=== PATIENT | male | born 1980 | race American Indian/Alaskan Native ===

== ENCOUNTER 2016-05-31 08:51 | Emergency (ER) | payer OTHER ==
[2016-05-31] MEDS ORDERED: TORADOL ONE (09:15)
[2016-05-31] MEDS ORDERED: NACL 0.9% 1000 ML 1,000 ML ONE (09:15)
[2016-05-31] MEDS ORDERED: TORADOL IV ONE (09:15)
[2016-05-31] MEDS ORDERED: NACL 0.9% 1000 ML 1,000 ML IV ONE (09:15)
[2016-05-31] MEDS ORDERED: BENADRYL IV ONE (09:43)
[2016-05-31] MEDS ORDERED: DILAUDID IV ONE ×2 (09:43→12:16)
[2016-05-31] MEDS ORDERED: ZOFRAN IV ONE (09:43)
[2016-05-31 09:58] LABS: Alanine Aminotransferase 21 units/L (7-56); Albumin 3.9 g/dL (3.9-5); Albumin/Globulin Ratio 1.3 %; Alkaline Phosphatase 46 units/L (35-129); Anion Gap 19 mmol/L; BUN/Creatinine Ratio 13.63; Bilirubin,Total 0.2 mg/dL (0.1-1.2); Blood Urea Nitrogen 15 mg/dL (9-20); Calcium 8.7 mg/dL (8.4-10.2); Carbon Dioxide 22 mmol/L (22-30); Chloride 101.3 mmol/L (98-107); Glucose 126 mg/dL (75-100); Lipase 21 units/L (13-60); Potassium 4.1 mmol/L (3.6-5.0); Sodium 138 mmol/L (137-145); Total Protein 6.8 g/dL (6.3-8.2)
[2016-05-31 09:59] LABS: Basophils % (Auto) 0.4 % (0.0-1.8); Eosinophils % (Auto) 0.5 % (0.0-4.3); Hematocrit 44.6 % (35.5-45.6); Hemoglobin 14.5 gm/dl (11.8-15.2); Mean Corpuscular HGB Conc 33 % (32-34); Mean Corpuscular Hemoglobin 30 pg (28-32); Mean Corpuscular Volume 92 fl (84-94); Platelet Count 288 K/mm3 (140-440); Red Blood Count 4.87 M/mm3 (3.65-5.03); Red Cell Distribution Width 13.2 % (13.2-15.2); White Blood Count 10.2 K/mm3 (4.5-11.0)
--- NOTE | 2016-05-31 10:23 | Cat Scan Report ---
CT OF THE ABDOMEN AND PELVIS WITHOUT CONTRAST HISTORY: Left lower quadrant abdominal pain. TECHNIQUE: Helical CT without contrast. Sagittal and coronal reformatted images. FINDINGS: Compared to 12/11/15. There is a new 3 mm calculus within the distal left ureter on image 152, series 3. Mild left hydronephrosis and perinephric stranding is noted. No right ureteral stone. There are a few scattered nonobstructing calyceal stones in both kidneys measuring up to 2 mm and scattered simple appearing renal cysts measuring up to 2.3 cm. Within the limits of a noncontrast exam, the remaining abdominal and pelvic viscera are within normal limits. The liver, biliary system, pancreas, spleen, adrenal glands and bladder are unremarkable. The bowel loops are normal caliber and wall thickness. Normal appendix. The aorta is normal caliber. No ascites, bulky adenopathy or inflammatory changes. The lung bases are clear. Normal heart size. No suspicious bony lesion. IMPRESSION: 3 mm distal left ureteral stone, mildly obstructing. Bilateral calyceal stones, nonobstructing. Scattered renal cysts, simple in appearance.
[2016-05-31 11:27] LABS: Bacteria,Urine 1+ /HPF (Negative); Bilirubin,Urine NEG (Negative); Blood,Urine LG (Negative); Ketones,Urine NEG (Negative); Leukocyte Esterase,Urine NEG (Negative); Mucus,Urine 2+ /HPF; Nitrite,Urine NEG (Negative); Urobilinogen,Urine < 2.0 mg/dL (<2.0)
[2016-05-31 11:30] LABS: RBC,Urine > 182.0 /HPF (0.0-6.0)
[2016-05-31] MEDS ORDERED: DILAUDID ONE (12:09)
--- NOTE | 2016-05-31 12:35 | Emergency Department Report ---
ED General Adult HPI - General Chief complaint: Abdominal Pain Stated complaint: FLANK PAIN Time Seen by Provider: 05/31/16 09:43 Source: patient Mode of arrival: Wheelchair Limitations: No Limitations - History of Present Illness Initial comments: The patient describes left lower quadrant abdominal pain which she states is reminiscent of prior kidney stone. He has had a previous bout of kidney stones but did not follow-up with a urologist. The pain began this morning and is non- radiating. He denies nausea vomiting fever or chills. He's had no dysuria. -: Gradual Location: abdomen Radiation: non-radiation Severity scale (0 -10): 6 Quality: aching Consistency: constant Improves with: none Worsens with: none Associated Symptoms: denies other symptoms Treatments Prior to Arrival: none - Related Data Previous Rx's Medication Instructions Recorded Last Taken Type Ketorolac [Toradol] 10 mg PO Q6H PRN #20 tablet 12/11/15 Unknown Rx Ondansetron [Zofran Odt] 4 mg PO QID PRN #20 tab.rapdis 12/11/15 Unknown Rx Tamsulosin [Flomax] 0.4 mg PO QHS #30 cap 12/11/15 Unknown Rx oxyCODONE /ACETAMINOPHEN [Percocet 1 tab PO Q6HR PRN #14 tablet 05/31/16 Unknown Rx 5/325] Allergies Allergy/AdvReac Type Severity Reaction Status Date / Time No Known Allergies Allergy Unverified 12/11/15 07:15 ED Review of Systems ROS: Stated complaint: FLANK PAIN Other details as noted in HPI Constitutional: denies: chills, fever Eyes: denies: eye pain, eye discharge, vision change ENT: denies: ear pain, throat pain Respiratory: denies: cough, shortness of breath, wheezing Cardiovascular: denies: chest pain, palpitations Endocrine: no symptoms reported Gastrointestinal: denies: abdominal pain, nausea, diarrhea Genitourinary: denies: urgency, dysuria Musculoskeletal: denies: back pain, joint swelling, arthralgia Skin: denies: rash, lesions Neurological: denies: headache, weakness, paresthesias Psychiatric: denies: anxiety, depression Hematological/Lymphatic: denies: easy bleeding, easy bruising ED Past Medical Hx - Past Medical History Previous Medical History?: Yes Additional medical history: Kidney Stones - Surgical History Past Surgical History?: No - Social History Smoking Status: Never Smoker Substance Use Type: Alcohol, Marijuana - Medications Home Medications: Home Medications Medication Instructions Recorded Confirmed Last Taken Type Ketorolac [Toradol] 10 mg PO Q6H PRN #20 tablet 12/11/15 Unknown Rx Ondansetron [Zofran Odt] 4 mg PO QID PRN #20 tab.rapdis 12/11/15 Unknown Rx Tamsulosin [Flomax] 0.4 mg PO QHS #30 cap 12/11/15 Unknown Rx oxyCODONE /ACETAMINOPHEN [Percocet 1 tab PO Q6HR PRN #14 tablet 05/31/16 Unknown Rx 5/325] ED Physical Exam - General Limitations: No Limitations General appearance: alert, in no apparent distress - Head Head exam: Present: atraumatic, normocephalic - Eye Eye exam: Present: normal appearance. Absent: scleral icterus - ENT ENT exam: Present: mucous membranes moist - Neck Neck exam: Present: normal inspection. Absent: tenderness, meningismus - Respiratory Respiratory exam: Present: normal lung sounds bilaterally. Absent: respiratory distress - Cardiovascular Cardiovascular Exam: Present: regular rate, normal rhythm. Absent: systolic murmur, diastolic murmur, rubs, gallop - GI/Abdominal GI/Abdominal exam: Present: soft, normal bowel sounds. Absent: distended, tenderness, guarding, rebound, rigid, organomegaly, mass, bruit, pulsatile mass , hernia - Rectal Rectal exam: Present: deferred - Extremities Exam Extremities exam: Present: normal inspection - Back Exam Back exam: Present: normal inspection - Neurological Exam Neurological exam: Present: alert, oriented X3, CN II-XII intact. Absent: motor sensory deficit - Psychiatric Psychiatric exam: Present: normal affect, normal mood - Skin Skin exam: Present: warm, dry, intact, normal color. Absent: rash ED Course Vital Signs 05/31/16 05/31/16 05/31/16 09:04 09:21 09:51 Pulse Rate 110 H Respiratory 22 22 22 Rate Blood Pressure 147/84 O2 Sat by Pulse 99 Oximetry 05/31/16 05/31/16 05/31/16 10:14 10:44 11:05 Pulse Rate Respiratory 22 22 22 Rate Blood Pressure O2 Sat by Pulse 99 Oximetry 05/31/16 12:17 Pulse Rate Respiratory 22 Rate Blood Pressure O2 Sat by Pulse Oximetry ED Medical Decision Making - Lab Data Result diagrams: 05/31/16 09:25 05/31/16 09:25 Laboratory Results - last 24 hr 05/31/16 05/31/16 05/31/16 09:25 09:25 11:05 WBC 10.2 RBC 4.87 Hgb 14.5 Hct 44.6 MCV 92 MCH 30 MCHC 33 RDW 13.2 Plt Count 288 Lymph % (Auto) 21.6 [place] % (Auto) 5.5 Eos % (Auto) 0.5 Baso % (Auto) 0.4 Lymph # 2.2 [place] # 0.6 Eos # 0.1 Baso # 0.0 Seg Neutrophils % 72.0 H Seg Neutrophils # 7.3 Sodium 138 Potassium 4.1 Chloride 101.3 Carbon Dioxide 22 Anion Gap 19 BUN 15 Creatinine 1.1 Estimated GFR > 60 BUN/Creatinine Ratio 13.63 Glucose 126 H Calcium 8.7 Total Bilirubin 0.2 AST 27 ALT 21 Alkaline Phosphatase 46 Total Protein 6.8 Albumin 3.9 Albumin/Globulin Ratio 1.3 Lipase 21 Urine Color Yellow Urine Turbidity Clear Urine pH 6.0 Ur Specific [place] 1.027 Urine Protein 100 mg/dl Urine Glucose (UA) Neg Urine Ketones Neg Urine Blood Lg Urine Nitrite Neg Urine Bilirubin Neg Urine Urobilinogen < 2.0 Ur Leukocyte Esterase Neg Urine WBC (Auto) 13.0 H Urine RBC (Auto) > 182.0 Urine Bacteria (Auto) 1+ Urine Mucus 2+ - Radiology Data interpreted by me: CT of the abdomen and pelvis demonstrated just 3 mm distal left ureteral stone mildly obstructing. There is bilateral nephrolithiasis. Scattered renal cysts. Otherwise unremarkable. Critical care attestation.: If time is entered above; I have spent that time in minutes in the direct care of this critically ill patient, excluding procedure time. ED Disposition Clinical Impression: Renal colic on left side, Nephrolithiasis Disposition: DISCHARGED TO HOME OR SELFCARE Is pt being admited?: No Does the pt Need Aspirin: No Condition: Stable Instructions: Kidney Stones (ED) Additional Instructions: You have one kidney stone that is passing on the left. You also of other kidney stones in your kidneys on both sides. There is an outside chance that you might have some infection any urine. Therefore I have prescribed an antibiotic. In addition I've given you something for pain. I will strongly recommend that you follow-up with the urologist who will provide further treatment for your kidney stones and check the urine culture to determine whether or not there is infection in the urine in 2-3 days. Return to the emergency department any acute change or problem. Prescriptions: oxyCODONE /ACETAMINOPHEN [Percocet 5/325] 1 tab PO Q6HR PRN #14 tablet PRN Reason: Pain Referrals: PRIMARY CARE, [Primary Care Provider] - 3-5 Days Time of Disposition: 14:41
[2016-05-31 15:05] VITALS: BP 139/81
== END 2016-05-31 15:06 | disposition home or self-care (01) ==
LOC: ED 08:51
DX: N23 Unspecified renal colic (principal); N20.0 Calculus of kidney; F12.10 Cannabis abuse, uncomplicated
CPT/HCPCS: 36415; 74176; 80053; 81001; 83690; 85025; 87086; 96361; 96374; 96375; 96376; 99284; J1170; J1200; J1885; J2405; J7030

== ENCOUNTER 2016-06-02 01:05 | Emergency (ER) | payer SELFPAY ==
[2016-06-02] MEDS ORDERED: DILAUDID IV ONE (04:17)
[2016-06-02] MEDS ORDERED: TORADOL IV ONE (04:17)
[2016-06-02] MEDS ORDERED: ZOFRAN IV ONE (04:17)
[2016-06-02] MEDS ORDERED: NACL 0.9% 1000 ML 1,000 ML IV ONE (04:17)
--- NOTE | 2016-06-02 04:18 | Emergency Department Report ---
ED General Adult HPI - General Chief complaint: Abdominal Pain Stated complaint: LOWER ABD PAIN Time Seen by Provider: 06/02/16 04:17 Source: patient Mode of arrival: Ambulatory Limitations: No Limitations - History of Present Illness Initial comments: This is a 35-year-old male. I evaluated him in the past. He presents to the ER today with left lower quadrant pain. The patient was seen in the ER a few days ago, and diagnosed with a left-sided kidney stone. He was discharged with antibiotics, pain medication, no nausea medication or Flomax. Initially, the patient was very uncomfortable. I ordered the patient Toradol, Zofran, fluids and hydromorphone. When I went back to evaluate the patient, he was sleeping comfortably, reported that his pain had completely subsided. He currently has no pain or complaints at this time. -: Gradual Location: abdomen Consistency: now resolved Improves with: medication Associated Symptoms: denies other symptoms - Related Data Previous Rx's Medication Instructions Recorded Last Taken Type Ketorolac [Toradol] 10 mg PO Q6H PRN #20 tablet 12/11/15 Unknown Rx Ondansetron [Zofran Odt] 4 mg PO QID PRN #20 tab.rapdis 12/11/15 Unknown Rx Tamsulosin [Flomax] 0.4 mg PO QHS #30 cap 12/11/15 Unknown Rx Nitrofurantoin [place]/M-Cryst 100 mg PO Q12HR #10 capsule 05/31/16 Unknown Rx [Macrobid CAP] oxyCODONE /ACETAMINOPHEN [Percocet 1 tab PO Q6HR PRN #14 tablet 05/31/16 Unknown Rx 5/325] Ketorolac [Toradol] 10 mg PO Q6H PRN #20 tablet 06/02/16 Unknown Rx Ondansetron [Zofran Odt] 4 mg PO QID PRN #20 tab.rapdis 06/02/16 Unknown Rx Tamsulosin [Flomax] 0.4 mg PO QDAY #30 cap 06/02/16 Unknown Rx Allergies Allergy/AdvReac Type Severity Reaction Status Date / Time No Known Allergies Allergy Unverified 12/11/15 07:15 ED Review of Systems ROS: Stated complaint: LOWER ABD PAIN Other details as noted in HPI Constitutional: denies: fever Eyes: denies: vision change ENT: denies: epistaxis Respiratory: denies: cough Cardiovascular: denies: palpitations Gastrointestinal: abdominal pain Genitourinary: as per HPI. denies: testicular pain Skin: denies: lesions Neurological: denies: weakness Psychiatric: anxiety ED Past Medical Hx - Past Medical History Previous Medical History?: Yes Additional medical history: Kidney Stones - Surgical History Past Surgical History?: No - Social History Smoking Status: Never Smoker Substance Use Type: None - Medications Home Medications: Home Medications Medication Instructions Recorded Confirmed Last Taken Type Ketorolac [Toradol] 10 mg PO Q6H PRN #20 tablet 12/11/15 Unknown Rx Ondansetron [Zofran Odt] 4 mg PO QID PRN #20 tab.rapdis 12/11/15 Unknown Rx Tamsulosin [Flomax] 0.4 mg PO QHS #30 cap 12/11/15 Unknown Rx Nitrofurantoin [place]/M-[place]ryst 100 mg PO Q12HR #10 capsule 05/31/16 Unknown Rx [Macrobid CAP] oxyCODONE /ACETAMINOPHEN [Percocet 1 tab PO Q6HR PRN #14 tablet 05/31/16 Unknown Rx 5/325] Ketorolac [Toradol] 10 mg PO Q6H PRN #20 tablet 06/02/16 Unknown Rx Ondansetron [Zofran Odt] 4 mg PO QID PRN #20 tab.rapdis 06/02/16 Unknown Rx Tamsulosin [Flomax] 0.4 mg PO QDAY #30 cap 06/02/16 Unknown Rx ED Physical Exam - General Limitations: No Limitations, Other (after administration of pain medication and IV fluids, patient's physical exam is quite benign.) General appearance: alert, in no apparent distress - Head Head exam: Present: atraumatic, normocephalic - Eye Eye exam: Present: normal appearance, EOMI. Absent: nystagmus - ENT ENT exam: Present: normal exam, normal orophraynx, mucous membranes moist, normal external ear exam - Neck Neck exam: Present: normal inspection, full ROM. Absent: tenderness, meningismus - Respiratory Respiratory exam: Present: normal lung sounds bilaterally. Absent: respiratory distress, wheezes, rales, rhonchi, stridor, chest wall tenderness, accessory muscle use, decreased breath sounds, prolonged expiratory - Cardiovascular Cardiovascular Exam: Present: normal rhythm, bradycardia, normal heart sounds. Absent: tachycardia, systolic murmur, diastolic murmur, rubs, gallop - GI/Abdominal GI/Abdominal exam: Present: soft, normal bowel sounds. Absent: distended, tenderness, guarding, rebound, rigid, pulsatile mass - Rectal Rectal exam: Present: deferred - Extremities Exam Extremities exam: Present: normal inspection, full ROM, normal capillary refill. Absent: tenderness, pedal edema, joint swelling, calf tenderness - Back Exam Back exam: Present: normal inspection, full ROM. Absent: tenderness, CVA tenderness (R), CVA tenderness (L), muscle spasm, paraspinal tenderness, vertebral tenderness - Neurological Exam Neurological exam: Present: alert, oriented X3, normal gait, other (Extraocular movements intact. Tongue midline. No facial droop. Facial sensation intact to light touch in the V1, V2, V3 distribution bilaterally. 5 and 5 strength in 4 extremities.. Sensation is intact to light touch in 4 extremities.). Absent : motor sensory deficit - Psychiatric Psychiatric exam: Present: normal affect, normal mood - Skin Skin exam: Present: warm, dry, intact, normal color. Absent: rash ED Course Vital Signs 06/02/16 06/02/16 01:18 05:31 Temperature 98.1 F Pulse Rate 58 L 44 L Respiratory 18 18 Rate Blood Pressure 142/96 Blood Pressure 117/70 [Left] O2 Sat by Pulse 100 98 Oximetry - Reevaluation(s) Reevaluation #1: 06/02/16 05:34 Differential diagnosis: Recurrent left-sided renal colic Assessment and plan: 35-year-old male with recurrent left-sided renal colic. He is completely asymptomatic at this time after Medications have been given. He will be discharged with Flomax, Toradol, Zofran, and instructed to continue current outpatient medications from his recent visit, and instructed to follow up with outpatient urology. Critical care attestation.: If time is entered above; I have spent that time in minutes in the direct care of this critically ill patient, excluding procedure time. ED Disposition Clinical Impression: Renal colic on left side Disposition: DISCHARGED TO HOME OR SELFCARE Is pt being admited?: No Does the pt Need Aspirin: No Condition: Stable Instructions: Renal Colic (ED) Additional Instructions: Continue current outpatient medications. Take the pain medication, nausea medication, Flomax medication that have been prescribed. Follow up with a urology specialist within the next 3-5 days. Return to the ER right away with new pain, worsened pain, migration of pain, fevers or chills, intractable nausea or vomiting, inability to tolerate liquid feeds. Prescriptions: Ketorolac [Toradol] 10 mg PO Q6H PRN #20 tablet PRN Reason: Pain Ondansetron [Zofran Odt] 4 mg PO QID PRN #20 tab.rapdis PRN Reason: Nausea Tamsulosin [Flomax] 0.4 mg PO QDAY #30 cap Referrals: PRIMARY CARE, [Primary Care Provider] - 3-5 Days SONJA MCDONOUGH MD [Staff Physician] - 3-5 Days
[2016-06-02 05:32] VITALS: BP 117/70
== END 2016-06-02 06:00 | disposition home or self-care (01) ==
LOC: ED 01:05
DX: N23 Unspecified renal colic (principal)
CPT/HCPCS: 96361; 96374; 96375; 99282; J1170; J1885; J2405; J7030

== ENCOUNTER 2019-08-29 04:57 | Emergency (ER) | payer SELFPAY ==
[2019-08-29 05:09] VITALS: BP 127/76
[2019-08-29 06:00] LABS: Basophils # (Auto) 0.1 K/mm3 (0.0-0.1); Basophils % (Auto) 1.7 % (0.0-1.8); Eosinophils # (Auto) 0.1 K/mm3 (0.0-0.4); Eosinophils % (Auto) 0.8 % (0.0-4.3); Hematocrit 41.5 % (35.5-45.6); Hemoglobin 13.9 gm/dl (11.8-15.2); Lymphocytes # (Auto) 1.1 K/mm3 (1.2-5.4); Lymphocytes % (Auto) 11.9 % (13.4-35.0); Mean Corpuscular HGB Conc 34 % (32-34); Mean Corpuscular Volume 90 fl (84-94); Monocytes # (Auto) 0.4 K/mm3 (0.0-0.8); Monocytes % (Auto) 4.9 % (0.0-7.3); Platelet Count 268 K/mm3 (140-440); Red Blood Count 4.61 M/mm3 (3.65-5.03); Red Cell Distribution Width 13.3 % (13.2-15.2)
[2019-08-29 06:06] LABS: Alanine Aminotransferase 19 units/L (7-56); Albumin 4.3 g/dL (3.9-5); BUN/Creatinine Ratio 13; Blood Urea Nitrogen 15 mg/dL (9-20); Calcium 9.2 mg/dL (8.4-10.2); Hemolysis Index 3
[2019-08-29 06:35] LABS: Bilirubin,Urine NEG (Negative); Blood,Urine LG (Negative); Color,Urine Yellow (Yellow); Mucus,Urine 3+ /HPF; Protein,Urine <15 mg/dL mg/dL (Negative); Urobilinogen,Urine < 2.0 mg/dL (<2.0)
[2019-08-29 06:42] LABS: RBC,Urine > 182.0 /HPF (0.0-6.0)
== END 2019-08-29 08:18 | disposition left against medical advice (07) ==
LOC: ED 04:57
DX: N20.0 Calculus of kidney (principal); Z53.21 Procedure and treatment not carried out due to patient leaving prior to being seen by health care provider
CPT/HCPCS: 36415; 80053; 81001; 85025; 87086